=== PATIENT | female | born 2000 ===

== ENCOUNTER → 2023-07-14 | Outpatient (CLI) | payer OTHER | LOC: MHCPAIN 13:18 | DX: M54.50 Low back pain, unspecified (principal) | CPT/HCPCS: G0463 ==

== ENCOUNTER → 2023-07-28 | Outpatient (CLI) | payer OTHER ==
[~2023-07-28] MED LIST: Iohexol 300 - 10 ML VIAL ONE; Triamcinolone 40 MG/ML 1 ML VIAL ONE
== END ==
LOC: MHCPAIN 08:06
DX: M54.50 Low back pain, unspecified (principal); M53.3 Sacrococcygeal disorders, not elsewhere classified; M99.03 Segmental and somatic dysfunction of lumbar region
CPT/HCPCS: J3301; Q9967

== ENCOUNTER → 2023-08-18 | Outpatient (CLI) | payer OTHER | LOC: MHCPAIN 15:24 | DX: M53.3 Sacrococcygeal disorders, not elsewhere classified (principal); M62.9 Disorder of muscle, unspecified; M54.50 Low back pain, unspecified | CPT/HCPCS: G0463 ==